=== PATIENT | male | born 1950 | race Caucasian/White ===

== ENCOUNTER 2023-12-18 10:17 | Emergency (ER) | payer MEDICARE, SELFPAY ==
--- NOTE | ~2023-12-18 | XR_ITS ---
EXAMINATION: XR hand RT min 3V DATE: 12/18/2023 10:57 INDICATION: Right hand pain. Fall. TECHNIQUE: 3 views of right hand were obtained. COMPARISON: None. FINDINGS: Bone alignment is normal. No fracture. There is mild osteoarthritis of distal radioulnar martin int and triscaphe joint. There is severe osteoarthritis of first carpometacarpal joint. There is mild osteoarthritis of many of the metacarpophalangeal joints and interphalangeal joints. There is modera te osteoarthritis of second and third proximal interphalangeal joints. IMPRESSION: 1. Polyarticular osteoarthritis. Reviewed, dictated and finalized at location A.
--- NOTE | 2023-12-18 10:28 | ED.UPPEXIN ---
HPI - Extremity Injury (Upper) General Chief Complaint: Extremity Injury, Upper Stated Complaint: right hand injury Time Seen by Provider: 12/18/23 10:26 Source: patient Mode of arrival: ambulatory Limitations: no limitations History of Present Illness HPI narrative: Patient is a 73-year-old male who presents with right hand pain after fall 2 weeks ago landing on outstretched hand. Reports pain worsened this pas week. Has use ibuprofen and ice with moderate relief. Denies any numbness, tingling or weakness to hand. Related Data Allergies Allergy/AdvReac Type Severity Reaction Status Date / Time No Known Allergies Allergy Verified 12/18/23 10:32 Review of Systems Review of Systems: All systems reviewed & are unremarkable except as noted in HPI and below Constitutional: Constitutional: Denies body ache(s), Denies chills, Denies fatigue, Denies fever(s), Denies headache(s), Denies malaise and Denies weakness Eyes: Eyes: Denies blurry vision, Denies irritation and Denies loss of vision ENT: Denies otalgia, Denies headache(s), Denies nasal discharge, Denies sinus pain and Denies sore throat Cardiovascular: Cardiovascular: Denies chest pain, Denies irregular heart rhythm and Denies dyspnea Respiratory: Respiratory: Denies dyspnea Gastrointestinal: Gastrointestinal: Denies abdominal pain, Denies melena, Denies hematochezia, Denies diarrhea, Denies nausea and Denies vomiting Musculoskeletal: Musculoskeletal: Denies back pain, Denies myalgias and Denies arthralgias Integumentary/Breasts: Skin/Breast: Denies pruritus and Denies rash Neurologic: Denies headache(s), Denies loss of vision and Denies weakness Psychiatric: Psychiatric: Reports no additional psychiatric complaints Endocrine: Endocrine: Denies fatigue PMFSH Comments At time of signature, agree with nursing past medical, surgical, social and family history. There is no relevant family history pertinent to the presenting complaint. Exam Const: General: cooperative, healthy appearing, comfortable, no acute distress and well nourished Nutritional Appearance: well nourished Orientation/consciousness: patient oriented x3 Limitations: no limitations HENMT: Head: normal to inspection, normocephalic and atraumatic Ears: hearing grossly normal bilaterally and external ears normal Face/Nose/Sinus: Normal external nose present, normal facial exam and face symmetric Face and sinus: normal facial exam and face symmetric Mouth: Yes lip normal Eyes: General: appearance normal, both eyes and all related structures Alignment and Position: alignment normal and position normal Periorbital: periorbital findings normal Eyelids: eyelids normal Pupils: Equal, round and reactive pupils present EOM: EOMs intact bilaterally Neck: Neck: normal visual inspection, full ROM and supple Chest: Chest palpation & inspection: normal inspection of the chest Resp: Effort & Inspection: normal respiratory effort and able to speak in complete sentences Auscultation: clear to auscultation bilaterally Cardio: Rate: regular rate Rhythm: regular rhythm Heart sounds: S1 normal heart sound present and S2 normal heart sound present GI: Inspection: normal to inspection Skin: General skin exam: normal color and no rashes or lesions noted Neuro: General: patient oriented x3 and moves all extremities Cranial nerves: Yes Equal, round and reactive pupils present Speech: normal speech Gait exam (Neuro): Normal gait present Extrem: General: normal to inspection, full ROM and no edema Right upper extremity: wrist normal to inspection, normal ROM, normal vascular exam and radial pulse present; no tenderness and no swelling and Extremity exam: right hand normal capillary refill, neuromotor exam normal wrist extension normal, thumb opposition normal, thumb IP flexion normal, thumb ADduction normal and fingers 2-5 ABduction normal, neurosensory exam normal radial nerve sensory function normal, ulnar nerve
[2023-12-18 10:44] VITALS: BP 159/63; PULSE 65; RESP 15; TEMP 36.9; O2SAT 99
== END 2023-12-18 11:59 | disposition home or self-care (01) ==
PROVIDERS: Emergency Provider Nurse Practitioner Family
DX: M19.041 Primary osteoarthritis, right hand (principal)
CPT/HCPCS: 73130; 99213; G0463